=== PATIENT | male | born 1980 | race Caucasian/White ===

== ENCOUNTER 2024-12-31 21:37 | Emergency (ER) | payer MEDICAID ==
[2024-12-31] MEDS: Take Home: Cyclobenzaprine 10 MG Tab, 4 Tab Pack PO ONE (22:12)
[2024-12-31] MEDS: Cyclobenzaprine 10 MG Tab PO ONE (22:12)
== END 2024-12-31 22:55 | disposition home or self-care (01) ==
LOC: DL.ED 21:37
DX: M51.26 Other intervertebral disc displacement, lumbar region (principal); M62.830 Muscle spasm of back; G89.29 Other chronic pain; F17.210 Nicotine dependence, cigarettes, uncomplicated; Z88.0 Allergy status to penicillin; Z91.013 Allergy to seafood; Z88.8 Allergy status to other drugs, medicaments and biological substances
CPT/HCPCS: 99283; 99284; A9270

== ENCOUNTER 2025-01-12 11:57 | Emergency (ER) | payer MEDICAID ==
[2025-01-12 12:28] LABS: BASOPHILS PERCENT AUTO 0.7 % (0.0-1.0); EOSINOPHILS PERCENT AUTO 1.5 % (1.0-3.0); HEMATOCRIT 40.7 % (40.0-54.0); HEMOGLOBIN 13.4 g/dL (14.0-18.0); LYMPHOCYTES PERCENT AUTO 22.9 % (20.5-50.1); MEAN CORPUSCULAR HEMOGLOBIN 27.9 pg (27.0-34.0); MEAN CORPUSCULAR HGB CONC 32.9 g/dL (33.0-35.0); MEAN CORPUSCULAR VOLUME 84.8 fL (80-100); NEUTROPHILS PERCENT AUTO 65.9 % (42.2-75.2); PLATELET COUNT,PLT 252 10^3/uL (150-450); WHITE BLOOD CELL COUNT,WBC 6.7 10^3/uL (5.0-10.0)
[2025-01-12 12:49] LABS: A/G RATIO 1.1; ALANINE AMINOTRANSFERASE,ALT 23 U/L (16-63); ALKALINE PHOSPHATASE 73 U/L (46-116); ANION GAP 13.1 mEq/L (7-13); ASPARTATE AMNIOTRANSFERASE,AST 16 U/L (15-37); BILIRUBIN TOTAL 0.4 mg/dL (0.2-1.0); BLOOD UREA NITROGEN,BUN 11 mg/dL (7-18); BUN/CREATININE RATIO 11.3 (No establ ref range); CALCIUM 9.6 mg/dL (8.5-10.1); CARBON DIOXIDE,CO2 27 mmol/L (21-32); CHLORIDE,CL 103 mmol/L (98-107); CREATININE 0.97 mg/dL (0.70-1.30); EST CRCL DRUG DOSING (CG) 118.57 mL/min; ESTIMATED GFR 100 mL/min (>=60); ETHANOL BLOOD MEDICAL < 3 mg/dL (0); GLUCOSE RANDOM 93 mg/dL (70-99); LIPASE 63 U/L (16-77); POTASSIUM,K 4.1 mmol/L (3.5-5.1); PROTEIN TOTAL,TP 7.8 g/dL (6.4-8.2); SODIUM,NA 139 mmol/L (136-145)
[2025-01-12 12:52] LABS: LACTIC ACID 0.9 mmol/L (0.4-2.0)
[2025-01-12 13:17] LABS: AMPHETAMINES,URINE NEGATIVE (NEGATIVE); BARBITURATES,URINE NEGATIVE (NEGATIVE); BENZODIAZEPINE,URINE NEGATIVE (NEGATIVE); MDMA (ECSTASY), URINE NEGATIVE (NEGATIVE); METHADONE,URINE NEGATIVE (NEGATIVE); METHAMPHETAMINES,URINE NEGATIVE (NEGATIVE); OPIATES,URINE POSITIVE (NEGATIVE); OXYCODONE,URINE NEGATIVE (NEGATIVE); PHENCYCLIDINE,URINE NEGATIVE (NEGATIVE); TCA,URINE NEGATIVE (NEGATIVE)
== END 2025-01-12 14:16 | disposition home or self-care (01) ==
LOC: DL.ED 11:57
DX: K52.9 Noninfective gastroenteritis and colitis, unspecified (principal); R10.9 Unspecified abdominal pain; F17.200 Nicotine dependence, unspecified, uncomplicated; Z88.0 Allergy status to penicillin; Z88.6 Allergy status to analgesic agent; Z91.013 Allergy to seafood
CPT/HCPCS: 36415; 80053; 80305-QW; 80307; 83605; 83690; 83735; 85025; 99284

== ENCOUNTER 2025-05-07 07:07 | Day surgery (SDC) | payer SELFPAY ==
[2025-05-07] MEDS: Lactated Ringers 1,000 ML IV SCH (07:33)
[2025-05-07] MEDS ORDERED: Propofol 200 MG/20 ML SDV ONE (09:22)
== END 2025-05-07 09:57 | disposition home or self-care (01) ==
LOC: DL.ENDO 07:07
PROVIDERS: ATTEND Internal Medicine Gastroenterology
DX: K25.9 Gastric ulcer, unspecified as acute or chronic, without hemorrhage or perforation (principal); K29.50 Unspecified chronic gastritis without bleeding; E78.00 Pure hypercholesterolemia, unspecified; F41.1 Generalized anxiety disorder; F17.210 Nicotine dependence, cigarettes, uncomplicated; Z88.1 Allergy status to other antibiotic agents; Z88.0 Allergy status to penicillin; Z98.84 Bariatric surgery status; Z91.013 Allergy to seafood
CPT/HCPCS: 43239; J7120

== ENCOUNTER 2025-07-20 13:01 | Emergency (ER) | payer SELFPAY ==
[2025-07-20] MEDS: Dexamethasone 4 MG/ML SDV IM ONE (13:38)
== END 2025-07-20 13:40 | disposition home or self-care (01) ==
LOC: DL.ED 13:01
DX: M54.41 Lumbago with sciatica, right side (principal); G89.29 Other chronic pain; E11.9 Type 2 diabetes mellitus without complications; Z88.0 Allergy status to penicillin; Z91.013 Allergy to seafood; Z88.8 Allergy status to other drugs, medicaments and biological substances; Z79.899 Other long term (current) drug therapy
CPT/HCPCS: 96372; 99283; J1100